=== PATIENT | male | born 1985 | race Two or more races ===

== ENCOUNTER → 2019-12-04 | Outpatient (CLI) | payer OTHER ==
--- NOTE | 2019-12-04 16:39 | CT ---
EXAMINATION TYPE: CT abdomen pelvis w con DATE OF EXAM: 12/04/2019 COMPARISON: None INDICATION: Generalized abdominal pain. DLP: 1218.1 mGycm, Automated exposure control for dose reduction was used. CONTRAST: 100 mL of Isovue M300. Study performed with Oral Contrast TECHNIQUE: Axial images were obtained from above the diaphragm to the pubic rami in the axial plane a t 5 mm thick sections. Reconstructed images are reviewed on the computer in the coronal plane. FINDINGS: Limited CT sections are obtained the lung bases. The lung bases are clear. CT ABDOMEN: Liver: Normal Spleen: Normal Pancreas: Normal Adrenal glands: The adrenal glands are normal. Gallbladder: Normal Kidneys: No masses are evident. No hydronephrosis is present. No cysts are present. Delayed images were obtained through the kidneys, which remain unremarkable. Aorta: Vascular calcification is within the aorta. Inferior vena cava: Normal. CT PELVIS: Loops of bowel within the abdomen and pelvis are normal. There are loops of bowel which are incom pletely distended or lack oral contrast limiting their evaluation. Appendix: Normal as visualized. Urinary bladder: Normal. Genitourinary structures: Prostate is normal. Osseous structures: No suspicious lytic or sclerotic lesions. IMPRESSIONS: 1. No acute abnormality
== END | disposition home or self-care (01) ==
LOC: RADCTMAIN 14:14
PROVIDERS: ATTEND Family Medicine
DX: R10.9 Unspecified abdominal pain (principal)
CPT/HCPCS: 74177; Q9967 ×2